=== PATIENT | female | born 1950 | race Caucasian/White ===

== ENCOUNTER 2020-01-29 11:10 | Emergency (ER) | payer MEDICARE ==
--- NOTE | 2020-01-29 11:23 | ED Physician Documentation ---
PD HPI SKIN - Stated complaint Stated Complaint: RASH - History obtained from History obtained from: Patient - History of Present Illness Timing - onset: How many days ago (2) Timing - duration: Days (2) Timing - details: Gradual onset, Still present (worsening) Location: Bodywide Quality / character: Itchy, Discolored (red). No: Vesicular, Draining Contributing factors: No: Exposed to medication, Exposed to food, Exposed to soap / lotion, Recent illness Similar symptoms before: Has not had sx before Recently seen: Not recently seen Review of Systems Constitutional: denies: Fever, Chills Nose: denies: Rhinorrhea / runny nose, Congestion Throat: reports: Other (denies throat nor tongue swelling.). denies: Sore throat Respiratory: denies: Dyspnea, Cough GI: denies: Nausea, Vomiting, Diarrhea Skin: reports: Rash PD PAST MEDICAL HISTORY - Past Medical History Cardiovascular: None Respiratory: None - Present Medications Home Medications: Ambulatory Orders Medication Instructions Recorded Confirmed Cetirizine [ZyrTEC] 10 mg PO DAILY #15 tablet 01/29/20 dexAMETHasone [Decadron] 4 mg PO DAILY #7 tablet 01/29/20 - Allergies Allergies/Adverse Reactions: Allergies Allergy/AdvReac Type Severity Reaction Status Date / Time No Known Drug Allergies Allergy Verified 01/29/20 11:23 - Living Situation Living Arrangement: reports: At home PD ED PE NORMAL - Vitals Vital signs reviewed: Yes - General General: Alert and oriented X 3, Well developed/nourished - HEENT HEENT: Pharynx benign - Neck Neck: Supple, no meningeal sign, No adenopathy - Cardiac Cardiac: RRR, No murmur - Respiratory Respiratory: Clear bilaterally - Derm Derm: Normal color, Warm and dry, Other (Blotchy red raised nonvesicular rash mostly in the warm spots such as elbow creases, armpits, groin but also a bit diffusely.) Results - Vitals Vitals: Vital Signs - 24 hr 01/29/20 11:20 Temperature 36.6 C Heart Rate 80 Respiratory 16 Rate Blood Pressure 133/78 H O2 Saturation 99 Oxygen O2 Source Room air PD MEDICAL DECISION MAKING - ED course Complexity details: considered differential (rash c/w hives. ), d/w patient Departure - Departure Disposition: 01 Home, Self Care Clinical Impression: Acute allergic reaction Qualifiers: Encounter type: initial encounter Qualified Code(s): T78.40XA - Allergy, unspecified, initial encounter Condition: Stable Record reviewed to determine appropriate education?: Yes Instructions: ED Allergic Reaction General Other Follow-Up: [facility] [Provider Group] Prescriptions: dexAMETHasone [Decadron] 4 mg PO DAILY #7 tablet Cetirizine [ZyrTEC] 10 mg PO DAILY #15 tablet Comments: This looks like an allergic reaction with hives. Use antihistamines of cetirizine long-lasting antihistamine (so less sedating) as well as Decadron steroid daily for the next week. Continue the cetirizine another week or so. Add Benadryl 1 tablet every 6 hours if needed for itchiness in the short-term. I would anticipate improvement of this over the next day or 2 and resolved within a few days. Recheck if not better in that timeframe or if recurring after that. Discharge Date/Time: 01/29/20 12:04
[2020-01-29 11:26] VITALS: BP 133/78
[2020-01-29] MEDS ORDERED: DEXAMETHASONE 10 MG/ML VIAL PO STA (11:34)
[2020-01-29] MEDS ORDERED: CHERRY SYRUP 10 ML UDC PO ONE (11:34)
[2020-01-29] MEDS ORDERED: CETIRIZINE 10 MG TABLET PO STA (11:34)
[2020-01-29] MEDS ORDERED: FAMOTIDINE 20 MG TABLET PO STA (11:34)
== END 2020-01-29 12:04 | disposition home or self-care (01) ==
LOC: ED 11:10
DX: T78.40XA Allergy, unspecified, initial encounter (principal); L50.0 Allergic urticaria
CPT/HCPCS: 99282; 99284; A9270